=== PATIENT | male | born 1945 | race Caucasian/White ===

== ENCOUNTER → 2019-01-26 | Outpatient (CLI) | payer OTHER ==
[~2019-01-26] VITALS: Ht 167.6 cm; Wt 74.8 kg
[~2019-01-26] MED LIST: MIRAPEX ER1.5 MG PO; SAW PALMETTO500 MG PO; SELEGILINE HCL5 M1 PO; SINEMET 25-1001 EAC1 PO
--- NOTE | 2019-01-31 12:06 | PATH ---
[facility] [address] [place] [address] PATHOLOGY RPT PROCEDURE Name: EFRENCALVIN Room #: REG MISTI Tucker.#: [id number] Admission: 01/26/19 Date of : 45 Discharge: Report #: [id number] Path Case #: [id number] [facility] Accession Number: [id number] . 01 Material submitted: . rectum - POLYP AT RECTUM . 01 Clinical history: . Preop DX: Screeing; + Cologuard Postop DX: Rectal polyp + sm. hemorrhoids . 01 Frozen section diagnosis: . . /QMS . 02 Diagnosis: Polyp, at rectum, endoscopic biopsy: - Hyperplastic polyp along with a lymphoid aggregate. - Negative for dysplasia. (IUV:pit; 01/30/2019) QTP 01/30/2019 1310 Local . 02 Electronically signed: . Shahrzad Gonzalez MD, Pathologist NPI- [id number] . 01 Gross description: . Received in formalin labeled "Calvin Urena, polyp at rectum," are two segments of zuniga soft tissue measuring 0.3 x 0.2 x 0.1 cm each in greatest dimensions. The specimen is submitted entirely in cassette A1. (DAC; 01/27/2019) XDC/XDC 01/27/2019 1144 Local . 02 Microscopic: . . . 02 Pathologist provided ICD-10: K62.1 . 02 CPT . 477530 Specimen Comment: A courtesy copy of this report has been sent to [phone], [phone] Specimen Comment: [id number] Specimen Comment: Report sent to and Specimen Comment: A duplicate report has been generated due to demographic updates. [address] [address] PATHOLOGY RPT PROCEDURE Name: CALVIN URENA Room #: REG [facility] Caitlin.#: [id number] Admission: 01/26/19 Date of : 45 Discharge: Report #: [id number] Path Case #: [id number] Performed at: [id number] [facility] [address], [place] [id number] MD Fausto Bell MD Phone: [phone] Performed at: [address] [id number] MD Shahrzad Gonzalez MD Phone: [phone]
--- NOTE | 2019-02-07 13:15 | P ---
[facility] [place] [address] PROCEDURE REPORT Name: EFRENCALVIN [place] [id number] Admission: 01/26/19 Attend Phys: Isreal Barker MD Discharge: Date of : 45 Report #: [id number] THIS REPORT FOR: //name// CC: FAM claudia Barker DATE OF SERVICE: 01/26/2019 OUTPATIENT COLONOSCOPY BRIEF HISTORY: The patient is a 73-year-old male, who has never had a colonoscopy, but recently had a Cologuard test, which was positive. PREOPERATIVE DIAGNOSIS: Positive Cologuard test. POSTOPERATIVE DIAGNOSES: 1. Diminutive adenomatous-appearing rectal polyp. 2. Small internal hemorrhoids. MEDICATIONS: Deep sedation with propofol per anesthesia. SPECIMEN: Rectal polyp. ESTIMATED BLOOD LOSS: 3 mL. PROCEDURE: Colonoscopy to cecum and terminal ileum with biopsy. FINDINGS: Prior to propofol sedation, procedure of colonoscopy was discussed with the patient as well as potential risks and its complications. He indicates he understands and desires to proceed. DESCRIPTION OF PROCEDURE: With the patient in left lateral decubitus position, digital examination was completed, which revealed no abnormalities. Subsequently, the Olympus video colonoscope was introduced into rectum and advanced under the direct vision to the cecum. Done with minimal difficulty. The cecum was identified by the ileocecal valve and the appendiceal orifice. I was able to visualize the distal segment of terminal ileum, which was inspected and noted to be unremarkable. At that point, the scope was slowly withdrawn and careful circumferential views were obtained including retroflexing the scope in the ascending colon. Upon a slow withdrawal of scope, the prep was good after a clean up of a number of pools of liquidy material. The mucosa was within normal limits, normal vascular pattern, and normal light reflex. No mucosal abnormalities were seen until the rectum was reached. Diminutive adenomas and polyp was seen and removed with biopsy forceps. Scope was further withdrawn and [facility] [address] [place] [address] PROCEDURE REPORT Name: EFRENCALVIN [place] Room #: REG [facility]#: [id number] Admission: 01/26/19 Attend Phys: Isreal Barker MD Discharge: Date of : 45 Report #: [id number] no additional abnormalities were seen. Upon a retroflexion, small internal hemorrhoids were seen. The scope was withdrawn. The patient tolerated the procedure well. CONDITION OF THE PATIENT UPON DISCHARGE: Following the procedure, the patient was drowsy, aroused, and conversant and will be discharged home when fully ambulatory. INSTRUCTIONS TO THE PATIENT AND FAMILY AT THE TIME OF DISCHARGE: One small polyp identified and removed as described. We will follow up on the pathology. If this is an adenoma, he should return in 5 years and if it is hyperplastic, then 10 years will be indicated. This is the patient's first colonoscopy. Withdrawal time from the cecum was 12 minutes 33 seconds. <ELECTRONICALLY SIGNED> By: Isreal Barker MD 02/07/19 1315 1109 1217 Isreal Barker MD /nt
== END | disposition home or self-care (01) ==
LOC: GI 09:13
DX: R19.5 Other fecal abnormalities (principal); K62.1 Rectal polyp; K64.8 Other hemorrhoids; G20 Parkinson's disease; Z98.41 Cataract extraction status, right eye; Z98.42 Cataract extraction status, left eye; Z98.890 Other specified postprocedural states; Z79.899 Other long term (current) drug therapy
CPT/HCPCS: 62110; 62900